=== PATIENT | female | born 1995 | race Caucasian/White ===

== ENCOUNTER 2017-04-30 14:45 | Emergency (ER) | payer OTHER ==
[~2017-04-30] VITALS: Ht 157.5 cm; Wt 68.2 kg
[~2017-04-30 14:45] MED LIST: HYDR-3965 PO; NAPR-58 PO
[2017-04-30] MEDS ORDERED: BIRTH CONTROL PO (14:58)
[2017-04-30 17:07] VITALS: BP 115/71
== END 2017-04-30 17:39 | disposition home or self-care (01) ==
LOC: EMS 14:47
DX: S09.90XA Unspecified injury of head, initial encounter (principal); F07.81 Postconcussional syndrome; R07.89 Other chest pain; R06.02 Shortness of breath; R11.0 Nausea; W19.XXXA Unspecified fall, initial encounter; Y93.66 Activity, soccer; Y92.89 Other specified places as the place of occurrence of the external cause; Y99.8 Other external cause status
CPT/HCPCS: 70450; 93005; 99284

== ENCOUNTER 2017-08-16 09:54 | Emergency (ER) | payer OTHER ==
[~2017-08-16] VITALS: Ht 157.5 cm; Wt 70.5 kg
[~2017-08-16 09:54] MED LIST changes: +BIRTH CONTROL PO; -HYDR-3965 PO; +HYDR-4061 PO
[2017-08-16] MEDS ORDERED: NORG1TAB65 PO (09:59)
[2017-08-16] MEDS ORDERED: SUMA100T16 PO (09:59)
[2017-08-16] MEDS ORDERED: HYDROCODONE/ACETAMINOPHEN 5-325 MG TABLET PO ONE (10:30)
[2017-08-16 11:21] VITALS: BP 115/71
[2017-08-16] MEDS ORDERED: ONDANSETRON HCL 4 MG TABLET PO ONE (12:15)
== END 2017-08-16 11:59 | disposition home or self-care (01) ==
LOC: EMS 09:55
DX: M25.562 Pain in left knee (principal)
CPT/HCPCS: 29505; 73562; 99284; Q0162